=== PATIENT | female | born 1935 | race Caucasian/White ===

== ENCOUNTER 2019-11-16 11:26 | Emergency (ER) | payer MEDICARE ==
[~2019-11-16] VITALS: Ht 157.5 cm; Wt 69.8 kg
[2019-11-16] MEDS ORDERED: LOSA100T14 PO (11:44)
[2019-11-16] MEDS ORDERED: VIT1CAPS42 PO (11:44)
[2019-11-16] MEDS ORDERED: CLON1TAB11 PO (11:44)
[2019-11-16] MEDS ORDERED: LEVO25TA2 PO (11:44)
[2019-11-16] MEDS ORDERED: AMLO-150 PO (11:44)
[2019-11-16] MEDS ORDERED: GABAPENTIN (11:44)
[2019-11-16] MEDS ORDERED: METO50TA82 PO (11:44)
[2019-11-16] MEDS ORDERED: PROBIOTIC (11:44)
[2019-11-16] MEDS ORDERED: OMEGA 3 (11:44)
[2019-11-16] MEDS ORDERED: MAGNESIUM (11:44)
[2019-11-16 13:30] VITALS: BP 145/65
[2019-11-16] MEDS ORDERED: THIAMINE 100MG TABLET PO ONE (13:30)
[2019-11-16] MEDS ORDERED: SODIUM CHLORIDE 0.9% 1,000ML IVBOLUS ONE (13:30)
[2019-11-16] MEDS ORDERED: LORazepam 2 MG/ML, 1ML IVPush PRN (13:30)
[2019-11-16] MEDS ORDERED: methylPREDNISolone SOD SUCC 125 MG/2 ML IV ONE (13:30)
== END 2019-11-16 13:32 | disposition home or self-care (01) ==
LOC: ED 13:16
DX: S00.93XA Contusion of unspecified part of head, initial encounter (principal); I10 Essential (primary) hypertension; Z87.891 Personal history of nicotine dependence; W01.0XXA Fall on same level from slipping, tripping and stumbling without subsequent striking against object, initial encounter; Y93.89 Activity, other specified; Y92.009 Unspecified place in unspecified non-institutional (private) residence as the place of occurrence of the external cause; Y99.8 Other external cause status
CPT/HCPCS: 70450; 99284